=== PATIENT | male | born 1960 | race Caucasian/White ===

== ENCOUNTER → 2016-10-16 | Outpatient (CLI) | payer SELFPAY ==
--- NOTE | 2016-10-16 10:55 | CT ---
EXAM DESCRIPTION: Abdomen and pelvis CT. CLINICAL HISTORY: Abdominal pain. COMPARISON: None. TECHNIQUE: A volumetric CT with and without IV contrast was obtained during the split bolus phase. Images are displayed in multiplanar reconstructions. FINDINGS: Extensive fatty infiltration of the liver. Gallbladder is present. Portal vein is widely patent. The spleen is unremarkable. The pancreas is unremarkable. There are single bilateral 2 mm renal stones. No evidence of obstruction or additional renal stone on today's study. The bilateral kidneys demonstrate cysts. The largest is on the right. This cyst measures approximately 6.4 cm in diameter. Urinary bladder appears unremarkable. The prostate is not considerably enlarged. It measures 3.6 cm in the transverse dimension. Central dystrophic calcifications noted. The abdominal aorta demonstrates minimal atherosclerotic disease, negative for aneurysm. Small bowel is unremarkable. The colon is unremarkable. Lung bases are clear. The osseous structures demonstrate no lytic or blastic lesion. IMPRESSION: Two small 2 mm renal stones noted bilaterally. No evidence of obstruction. No evidence of enhancing renal mass. There is a small subcentimeter left renal cyst and a 6.4 cm right renal cysts noted. These appear benign. Electronically signed by: Kye Spaulding MD 10/16/2016 10:54
== END ==
LOC: CT 07:53
PROVIDERS: ATTEND Family Medicine
DX: R31.21 Asymptomatic microscopic hematuria (principal); N20.0 Calculus of kidney; N28.1 Cyst of kidney, acquired